=== PATIENT | male | born 1975 | race Caucasian/White ===

== ENCOUNTER 2021-01-26 15:28 | Observation (INO) ==
[2021-01-26] MEDS ORDERED: Aspirin 325 MG TABLET PO ONE (16:22)
[2021-01-26] MEDS ORDERED: Isovue-370 500 ML BOTTLE IVP ONE (16:55)
[2021-01-26 18:01] LABS: Basophils % 0.5 %; Eosinophils # 0.6 K/mcL (0.0-0.6); Eosinophils % 6.8 %; Hematocrit 44.8 % (37.5-50.1); Hemoglobin 15.3 g/dL (12.9-16.9); Immature Granulocytes % 0.3 % (0-4); Lymphocytes # 2.4 K/mcL (0.6-4.6); Lymphocytes % 27.9 %; Mean Corpuscular HGB Conc 34.2 g/dL (31.6-35.5); Mean Corpuscular Volume 87.8 fL (83.0-100.0); Mean Platelet Volume 11.2 fL (9.4-12.4); Monocytes # 0.6 K/mcL (0.0-1.3); Monocytes % 6.5 %; Platelet Count 199 K/mcL (140-400); Red Cell Distribution Width 12.4 % (11.5-14.5); White Blood Count 8.6 K/mcL (4.3-11.1)
[2021-01-26 18:18] LABS: BUN/Creatinine Ratio 10 (6-26); Blood Urea Nitrogen 9 mg/dL (6-20); Calcium 9.3 mg/dL (8.6-10.3); Carbon Dioxide 27 mEq/L (23-29); Chloride 102 mEq/L (98-107); Glucose 227 mg/dL (70-105); Lipase 36 Units/L (11-82); Osmolality,Calculated 286 (280-300); Potassium 3.7 mEq/L (3.5-5.1); Sodium 135 mEq/L (136-145); eGFR For African Americans > 60 (> 60); eGFR For Non-African Americans > 60 (> 60)
[2021-01-26 18:19] LABS: Troponin I < 0.03 ng/mL (< 0.04)
[2021-01-27] MEDS ORDERED: Melatonin 3 MG TABLET PO PRN (01:17)
[2021-01-27] MEDS ORDERED: Naloxone 0.4 MG/ML INJ IVP PRN (01:17)
[2021-01-27] MEDS: Ofloxacin OPTH Drops 5 ML BOTTLE RIGHT EAR SCH ×2 (03:54→04:31)
[2021-01-27] MEDS: *HR* Heparin 5,000 UNIT/ML VIAL SQ SCH ×2 (06:23→17:13)
[2021-01-27 07:07] VITALS: O2SAT 96
[2021-01-27] MEDS ORDERED: Aspirin 81 MG TAB.CHEW PO SCH (09:00)
[2021-01-27] MEDS ORDERED: Perflutren Lipid Microsphere 1.3 ML in 0.9 % Sodium Chloride 8.7 ML IVP PRN (09:13)
[2021-01-27] MEDS ORDERED: D5% in Water 1,000 ML IVC PRN (09:15)
[2021-01-27] MEDS ORDERED: *HR* Dextrose 50 % in Water (Syg) 50 ML SYRINGE IVP PRN (09:15)
[2021-01-27] MEDS ORDERED: Dextrose Gel 15 GM/37.5 ML TUBE PO PRN ×2 (09:15)
[2021-01-27 10:41] LABS: Chol/HDL Ratio 2.5 (0-4.9)
[2021-01-27] MEDS: Insulin LISPRO 300 UNITS/3 ML VIAL SUBQ SCH ×3 (11:02→17:14)
[2021-01-27 11:58] VITALS: BP 134/83; PULSE 79; TEMP 98.3
[2021-01-27 12:08] LABS: Estimated Average Glucose 137 mg/dl; Hemoglobin A1C 6.4 %
[2021-01-27] MEDS ORDERED: Acetaminophen 325 MG TABLET PO ONE (12:13)
[2021-01-27] MEDS ORDERED: Ibuprofen 600 MG TABLET PO SCH (21:00)
[2021-01-27] MEDS ORDERED: Colchicine 0.6 MG TABLET PO SCH (21:00)
== END 2021-01-27 17:18 | disposition home or self-care (01) ==
LOC: 2ANU 15:28 → EMEROOARM 15:28 → SUATTDRO 22:09 → 2ANU 22:29 → 3BNU 01-27 02:07
PROVIDERS: ADMIT Internal Medicine; ATTEND Internal Medicine